=== PATIENT | male | born 1950 | race Caucasian/White ===

== ENCOUNTER 2018-02-05 14:53 | Emergency (ER) | payer MEDICARE, BC ==
[2018-02-05 15:18] VITALS: BP 151/80
--- NOTE | 2018-02-05 15:55 | ED Physician Documentation ---
PD HPI SKIN - Stated complaint Stated Complaint: LT ARM WOUND OOZING - Chief complaint Chief Complaint: Wound - History obtained from History obtained from: Patient - History of Present Illness Timing - onset: How many days ago (2) Timing - duration: Days (couple days of some redness and yellow drainage from part of recently sutured lac. Had sutures out 5 days ago and was healing well. Now some draiange.) Timing - details: Gradual onset Recently seen: Emergency Dept (seen in another facility for arm laceration and had sutured repair. Was healing okay and had sutures out 5 days ago. Now with some redness and draiange at portion of the wound.) Review of Systems Constitutional: denies: Fever, Chills Neurologic: denies: Focal weakness, Numbness PD PAST MEDICAL HISTORY - Past Medical History Past Medical History: Yes Endocrine/Autoimmune: None - Past Surgical History Past Surgical History: No - Present Medications Home Medications: Ambulatory Orders Medication Instructions Recorded Confirmed Doxycycline Monohydrate 100 mg PO BID #14 tablet 02/05/18 Fexofenadine HCl [Kristel Allergy] 1 tab PO DAILY 02/05/18 02/05/18 - Allergies Allergies/Adverse Reactions: Allergies Allergy/AdvReac Type Severity Reaction Status Date / Time No Known Drug Allergies Allergy Verified 02/05/18 15:18 - Social History Does the pt smoke?: No Smoking Status: Never smoker Does the pt drink ETOH?: No Does the pt have substance abuse?: No - Immunizations Immunizations are current?: Yes - POLST Patient has POLST: No PD ED PE NORMAL - Vitals Vital signs reviewed: Yes - General General: Alert and oriented X 3, No acute distress, Well developed/nourished - Derm Derm: Normal color, Warm and dry - Extremities Extremities: Other (left forearm with healing wound tat is several cm long, v- shaped. The apex of the wound has focal area of redness, superficial dehiscence , and mild yellow draiange. Not purulent per se. I do not see/feel buried suture at that spot (he says it had been layered closure). ) Results - Vitals Vitals: Vital Signs - 24 hr 02/05/18 15:13 Temperature 36.4 C L Heart Rate 48 L Respiratory 16 Rate Blood Pressure 151/80 H O2 Saturation 99 Oxygen O2 Source Room air PD MEDICAL DECISION MAKING - ED course Complexity details: considered differential (most of the sutured wound appears good. The middle apex of the V shaped laceration has some redness, mild dehiscence, and faint yellow/wtaery drainage. ), d/w patient Departure - Departure Disposition: 01 Home, Self Care Clinical Impression: Wound infection Condition: Stable Record reviewed to determine appropriate education?: Yes Prescriptions: Doxycycline Monohydrate 100 mg PO BID #14 tablet Comments: Allow the area to drain so use dry dressing over it. Doxycycline twice daily for a week for presumed wound infection. This most commonly is a staph type infection. The culture will result in 2 or 3 days to see if we need to change antibiotics. Tylenol or ibuprofen if needed for pains. Recheck if not improved over the next several days and return check if increased redness drainage or pain. Discharge Date/Time: 02/05/18 16:40
[2018-02-05] MEDS ORDERED: DOXYCYCLINE 100 MG TABLET PO STA (16:34)
== END 2018-02-05 16:40 | disposition home or self-care (01) ==
LOC: ED 14:53
DX: S51.812D Laceration without foreign body of left forearm, subsequent encounter (principal); L08.9 Local infection of the skin and subcutaneous tissue, unspecified; X58.XXXD Exposure to other specified factors, subsequent encounter; T81.30XA Disruption of wound, unspecified, initial encounter
CPT/HCPCS: 99283; A9270; 87070; 87205